=== PATIENT | male | born 1945 | race Caucasian/White ===

== ENCOUNTER 2022-10-18 13:44 | Inpatient (IN) | payer OTHER ==
[~2022-10-18] VITALS: Ht 172.7 cm; Wt 75.7 kg
[2022-10-18 14:03] VITALS: BP_SYST 114
[2022-10-18] MEDS ORDERED: NACL 0.9% 1,000 ML IV ONE (14:15)
[2022-10-18] MEDS ORDERED: ACETAMINOPHEN 650 MG SUPP.RECT RC ONE (14:15)
[2022-10-18 15:35] LABS: BASOPHILS % (AUTO) 0.3 % (0.0-2.0); HEMATOCRIT 39.2 % (36-54); HEMOGLOBIN 13.1 g/dL (14.0-18.0); LYMPHOCYTES # (AUTO) 0.3 K/uL (1.0-5.5); LYMPHOCYTES % (AUTO) 2.6 % (20.5-51.5); MEAN CORPUSCULAR HEMOGLOBIN 29 pg (27-31); MEAN CORPUSCULAR HGB CONC 33 % (32-36); MEAN CORPUSCULAR VOLUME 87 fL (79.0-98.0); MONOCYTES # (AUTO) 0.7 K/uL (0.0-1.0); MONOCYTES % (AUTO) 6.1 % (1.7-9.3); NEUTROPHILS # (AUTO) 9.7 K/uL (1.8-7.7); PLATELET COUNT (AUTO) 345 K/uL (130-430); RED BLOOD CELL COUNT(AUTO) 4.49 MIL/uL (4.2-6.2); RED CELL DISTRIBUTION WIDTH 14.3 % (9.0-15.0); WHITE BLOOD COUNT (AUTO) 10.6 K/uL (4.8-10.8)
[2022-10-18] MEDS ORDERED: CALCIUM CHLORIDE 1 GM/10 ML DISP.SYRIN (14 mEq Ca++/SYR) ONE ×2 (15:42→16:20)
[2022-10-18 15:43] LABS: INR 1.2 (0.80-1.20); PROTHROMBIN TIME 11.9 SECS (9.5-12.5)
[2022-10-18] MEDS ORDERED: CALCIUM CHLORIDE 1 GM/10ML VIAL (13.6 mEq Ca++/VIAL) IV ONE (15:45)
[2022-10-18] MEDS ORDERED: MAGNESIUM SULFATE 50 ML IV ONE (15:45)
[2022-10-18 15:49] LABS: CALCIUM 9.2 mg/dL (8.4-11.0); CHLORIDE 91 mmol/L (98-107); GLUCOSE 132 mg/dL (70-99)
[2022-10-18 15:53] LABS: ALANINE AMINOTRANSFERASE 59 U/L (12-78); ALBUMIN 2.7 g/dL (3.4-4.8); ANION GAP 24 (5-15); ASPARTATE AMINOTRANSFERASE 29 U/L (10-37); TOTAL BILIRUBIN 0.6 mg/dL (0.0-1.0)
[2022-10-18] MEDS ORDERED: INSULIN REGULAR, HUMAN 10 UNITS/0.1 ML, 3 ML VIAL IVP ONE (16:15)
[2022-10-18] MEDS ORDERED: SODIUM BICARBONATE 8.4% JECT 50 MEQ/50 ML SYRINGE IVP ONE ×2 (16:15→20:00)
[2022-10-18] MEDS ORDERED: DEXTROSE 50% JECT 50 ML DISP.SYRIN IVP ONE (16:15)
[2022-10-18 16:29] LABS: UREA NITROGEN, BLOOD 192 mg/dL (8-21)
[2022-10-18 16:30] LABS: CREATININE 13.17 mg/dL (0.55-1.30)
[2022-10-18] MEDS ORDERED: PROPOFOL DRIP 100 ML IV ONE (16:44)
[2022-10-18] MEDS ORDERED: SODIUM POLYSTYRENE SULFONATE 15 GM/60 ML UDBTL PO ONE ×3 (16:45→21:15)
[2022-10-18] MEDS ORDERED: SODIUM ZIRCONIUM CYCLOSILICATE 10 GM POWD.PACK PO ONE (16:45)
[2022-10-18 17:47] LABS: BILIRUBIN,URINE NEGATIVE (NEGATIVE); BLOOD, URINE 3+ (NEGATIVE); COLOR,URINE YELLOW (YELLOW); GLUCOSE,URINE NEGATIVE (NEGATIVE); KETONES,URINE NEGATIVE (NEGATIVE); LEUKOCYTE ESTERASE ,URINE NEGATIVE (NEGATIVE); NITRITE, URINE NEGATIVE (NEGATIVE); PH,URINE 5.5 (5.0-8.0); PROTEIN URINE 1+ (NEGATIVE); UROBILINOGEN,URINE 0.2 (0.2-1.0)
[2022-10-18 17:56] LABS: CLARITY/URINE SLIGHTLY CLOUDY (CLEAR)
[2022-10-18 17:57] LABS: BACTERIA,URINE FEW /HPF (None Seen); MUCUS,URINE None Seen /LPF (None Seen); RBC,URINE >100 /HPF (0-3); WBC,URINE 0-3 /HPF (0-3); YEAST,URINE Few /HPF (None Seen)
[2022-10-18] MEDS ORDERED: PRAV10TA37 PO (18:48)
[2022-10-18] MEDS ORDERED: CYAN100010 PO (18:48)
[2022-10-18] MEDS ORDERED: ARIP5TAB10 PO (18:48)
[2022-10-18] MEDS ORDERED: LEVE500T9 PO (18:48)
[2022-10-18] MEDS ORDERED: POLY17PO4 PO (18:48)
[2022-10-18] MEDS ORDERED: ACET325T53 PO (18:48)
[2022-10-18] MEDS ORDERED: BISA-79 PO (18:48)
[2022-10-18] MEDS ORDERED: ASCO500T20 PO (18:48)
[2022-10-18] MEDS ORDERED: PSYL3.4P5 PO (18:48)
[2022-10-18] MEDS ORDERED: PRO20 PO (18:48)
[2022-10-18] MEDS ORDERED: MULT-1193 PO (18:48)
[2022-10-18] MEDS ORDERED: SENN-22 PO (18:48)
[2022-10-18] MEDS ORDERED: MOM PO (18:48)
[2022-10-18] MEDS ORDERED: ONDA-8 TL (18:48)
[2022-10-18] MEDS ORDERED: EZET10TA30 PO (18:48)
[2022-10-18 18:54] LABS: CHLORIDE 98 mmol/L (98-107); GLUCOSE 151 mg/dL (70-99)
[2022-10-18 19:03] LABS: ANION GAP 20 (5-15); CHOLESTEROL 105 mg/dL (<200); FREE T4 (FREE THYROXINE) 1.1 ng/dL (0.6-1.6); HDL CHOLESTEROL 40 mg/dL (>45); THYROID STIMULATING HORMONE 1.53 uIu/mL (0.34-4.82); TRIGLYCERIDES 85 mg/dL (30-150)
[2022-10-18] MEDS: PROPOFOL DRIP 100 ML IV PRN (19:03)
[2022-10-18] MEDS: D5/0.45 NS 1,000 ML IV SCH (19:04)
[2022-10-18 19:08] LABS: CREATININE 12.38 mg/dL (0.55-1.30); UREA NITROGEN, BLOOD 188 mg/dL (8-21)
[2022-10-18] MEDS ORDERED: ALBUTEROL SULFATE 0.083% 2.5 MG/3 ML VIAL.NEB INH ONE ×2 (21:10→21:15)
[2022-10-18 21:55] VITALS: BP_SYST 104
[2022-10-18 22:00] VITALS: BP_SYST 97
[2022-10-18] MEDS ORDERED: ALBUMIN HUMAN 25% 100 ML IV ONE (22:30)
[2022-10-18] MEDS ORDERED: NOREPINEPHRINE BITARTRATE 4 MG in NS 246 ML IV PRN (22:30)
[2022-10-18 23:00] VITALS: BP_SYST 107
[2022-10-18] MEDS: DOXYCYCLINE HYCLATE 100 MG CAPSULE PO SCH (23:00)
[2022-10-18] MEDS: PIPERACILLIN/TAZO 2.25G/DEX-IS 50 ML IV SCH (23:00)
[2022-10-18 23:13] VITALS: BP_SYST 107
[2022-10-18] MEDS ORDERED: PIPERACILLIN/TAZOBACTAM 2.25 GM VIAL IV ONE (23:21)
[2022-10-18] MEDS ORDERED: DOXYCYCLINE HYCLATE 100 MG VIAL IV ONE (23:22)
[2022-10-18 23:43] VITALS: BP_SYST 107
[2022-10-19] VITALS (31 sets, daily range): BP systolic 87–111
[2022-10-19] MEDS ORDERED: ALBUMIN HUMAN 25% 100 ML IV SCH (02:30)
[2022-10-19] MEDS: PROPOFOL DRIP 100 ML IV PRN ×2 (02:57→14:43)
[2022-10-19] MEDS ORDERED: ALBUMIN HUMAN 25% 100 ML IV PRN (03:15)
[2022-10-19] MEDS: PIPERACILLIN/TAZO 2.25G/DEX-IS 50 ML IV SCH ×3 (05:07→21:28)
[2022-10-19 06:57] LABS: BASOPHILS % (AUTO) 0.2 % (0.0-2.0); EOSINOPHILS % (AUTO) 0.4 % (0.0-4.0); HEMOGLOBIN 9.6 g/dL (14.0-18.0); LYMPHOCYTES # (AUTO) 0.3 K/uL (1.0-5.5); LYMPHOCYTES % (AUTO) 4.4 % (20.5-51.5); MEAN CORPUSCULAR HEMOGLOBIN 29 pg (27-31); MEAN CORPUSCULAR HGB CONC 34 % (32-36); MEAN CORPUSCULAR VOLUME 86 fL (79.0-98.0); MONOCYTES # (AUTO) 0.9 K/uL (0.0-1.0); MONOCYTES % (AUTO) 11.3 % (1.7-9.3); NEUTROPHILS # (AUTO) 6.5 K/uL (1.8-7.7); NEUTROPHILS % (AUTO) 83.7 % (40.0-70.0); PLATELET COUNT (AUTO) 216 K/uL (130-430); RED BLOOD CELL COUNT(AUTO) 3.26 MIL/uL (4.2-6.2); RED CELL DISTRIBUTION WIDTH 14.1 % (9.0-15.0); WHITE BLOOD COUNT (AUTO) 7.8 K/uL (4.8-10.8)
[2022-10-19 07:19] LABS: ALANINE AMINOTRANSFERASE 52 U/L (12-78); ALBUMIN 2.2 g/dL (3.4-4.8); ANION GAP 20 (5-15); ASPARTATE AMINOTRANSFERASE 35 U/L (10-37); CALCIUM 8.9 mg/dL (8.4-11.0); CHLORIDE 107 mmol/L (98-107); GLUCOSE 166 mg/dL (70-99); PHOSPHORUS 10.9 mg/dL (2.7-4.5); TOTAL BILIRUBIN 0.5 mg/dL (0.0-1.0)
[2022-10-19 07:38] LABS: CREATININE 9.88 mg/dL (0.55-1.30); UREA NITROGEN, BLOOD 159 mg/dL (8-21)
[2022-10-19] MEDS: DOXYCYCLINE HYCLATE 100 MG CAPSULE PO SCH ×2 (09:21→21:27)
[2022-10-19] MEDS: D5/0.45 NS 1,000 ML IV SCH ×2 (09:21→21:28)
[2022-10-19] MEDS ORDERED: HEPARIN SODIUM,PORCINE 5,000 UNITS/ML VIAL IV ONE (21:00)
[2022-10-19] MEDS ORDERED: HEPARIN SODIUM,PORCINE 5,000 UNITS/ML VIAL ONE (21:04)
[2022-10-20] VITALS (30 sets, daily range): BP systolic 85–135
[2022-10-20 07:05] LABS: BASOPHILS % (AUTO) 0.5 % (0.0-2.0); EOSINOPHILS # (AUTO) 0.3 K/uL (0.0-0.4); EOSINOPHILS % (AUTO) 3.8 % (0.0-4.0); HEMATOCRIT 24.5 % (36-54); HEMOGLOBIN 8.4 g/dL (14.0-18.0); LYMPHOCYTES # (AUTO) 0.5 K/uL (1.0-5.5); LYMPHOCYTES % (AUTO) 6.9 % (20.5-51.5); MEAN CORPUSCULAR HEMOGLOBIN 30 pg (27-31); MEAN CORPUSCULAR HGB CONC 34 % (32-36); MEAN CORPUSCULAR VOLUME 87 fL (79.0-98.0); MONOCYTES # (AUTO) 0.7 K/uL (0.0-1.0); MONOCYTES % (AUTO) 8.9 % (1.7-9.3); NEUTROPHILS % (AUTO) 79.9 % (40.0-70.0); PLATELET COUNT (AUTO) 176 K/uL (130-430); RED BLOOD CELL COUNT(AUTO) 2.83 MIL/uL (4.2-6.2); WHITE BLOOD COUNT (AUTO) 7.5 K/uL (4.8-10.8)
[2022-10-20 07:22] LABS: ANION GAP 12 (5-15); CHLORIDE 106 mmol/L (98-107); CREATININE 4.54 mg/dL (0.55-1.30); GLUCOSE 131 mg/dL (70-99); UREA NITROGEN, BLOOD 83 mg/dL (8-21)
[2022-10-20 08:06] LABS: CREATININE, URINE 65.4 mg/dL (Not Estab.); MICROALBUMIN URINE RANDOM 143.7 ug/mL (Not Estab.)
[2022-10-20] MEDS: PIPERACILLIN/TAZO 2.25G/DEX-IS 50 ML IV SCH ×3 (08:12→21:44)
[2022-10-20] MEDS: SEVELAMER CARBONATE 800 MG TABLET PO SCH ×3 (08:12→17:11)
[2022-10-20] MEDS: DOXYCYCLINE HYCLATE 100 MG CAPSULE PO SCH ×2 (08:13→21:44)
[2022-10-20] MEDS ORDERED: PROPOFOL DRIP 100 ML IV PRN (09:45)
[2022-10-20] MEDS: D5/0.45 NS 1,000 ML IV SCH ×2 (12:19→23:50)
[2022-10-20] MEDS ORDERED: HEPARIN SODIUM,PORCINE 5,000 UNITS/ML VIAL MC ONE (13:30)
[2022-10-20] MEDS: HEPARIN SODIUM,PORCINE 5,000 UNITS/ML VIAL SUBCUT SCH (21:39)
[2022-10-21] VITALS (25 sets, daily range): BP systolic 99–123
[2022-10-21] MEDS: PIPERACILLIN/TAZO 2.25G/DEX-IS 50 ML IV SCH ×3 (05:44→21:17)
[2022-10-21 06:05] LABS: BASOPHILS % (AUTO) 0.3 % (0.0-2.0); EOSINOPHILS # (AUTO) 0.6 K/uL (0.0-0.4); EOSINOPHILS % (AUTO) 5.9 % (0.0-4.0); HEMATOCRIT 26.4 % (36-54); HEMOGLOBIN 9.1 g/dL (14.0-18.0); LYMPHOCYTES # (AUTO) 0.6 K/uL (1.0-5.5); LYMPHOCYTES % (AUTO) 5.9 % (20.5-51.5); MEAN CORPUSCULAR HEMOGLOBIN 30 pg (27-31); MEAN CORPUSCULAR HGB CONC 35 % (32-36); MEAN CORPUSCULAR VOLUME 87 fL (79.0-98.0); MONOCYTES # (AUTO) 1.1 K/uL (0.0-1.0); MONOCYTES % (AUTO) 10.3 % (1.7-9.3); NEUTROPHILS # (AUTO) 8.1 K/uL (1.8-7.7); NEUTROPHILS % (AUTO) 77.6 % (40.0-70.0); PLATELET COUNT (AUTO) 172 K/uL (130-430); RED BLOOD CELL COUNT(AUTO) 3.02 MIL/uL (4.2-6.2); RED CELL DISTRIBUTION WIDTH 13.8 % (9.0-15.0); WHITE BLOOD COUNT (AUTO) 10.4 K/uL (4.8-10.8)
[2022-10-21 06:18] LABS: ANION GAP 8 (5-15); CALCIUM 7.9 mg/dL (8.4-11.0); CHLORIDE 101 mmol/L (98-107); CREATININE 2.53 mg/dL (0.55-1.30); GLUCOSE 104 mg/dL (70-99); UREA NITROGEN, BLOOD 41 mg/dL (8-21)
[2022-10-21] MEDS: SEVELAMER CARBONATE 800 MG TABLET PO SCH ×3 (08:20→18:22)
[2022-10-21] MEDS: DOXYCYCLINE HYCLATE 100 MG CAPSULE PO SCH ×2 (08:21→21:15)
[2022-10-21] MEDS: PANTOPRAZOLE SODIUM 40 MG/VIAL (PROTONIX) IVP SCH (08:21)
[2022-10-21] MEDS: HEPARIN SODIUM,PORCINE 5,000 UNITS/ML VIAL SUBCUT SCH ×2 (08:22→21:16)
[2022-10-21] MEDS ORDERED: KCL 20 mEq in 100 mL (PREMIX) 100 ML IV ONE (09:15)
[2022-10-21] MEDS: D5/0.45 NS 1,000 ML IV SCH (13:26)
[2022-10-22] VITALS (19 sets, daily range): BP systolic 96–124
[2022-10-22] MEDS: D5/0.45 NS 1,000 ML IV SCH (02:40)
[2022-10-22] MEDS: PIPERACILLIN/TAZO 2.25G/DEX-IS 50 ML IV SCH ×3 (06:08→21:11)
[2022-10-22 06:44] LABS: BASOPHILS % (AUTO) 0.4 % (0.0-2.0); EOSINOPHILS # (AUTO) 0.5 K/uL (0.0-0.4); EOSINOPHILS % (AUTO) 5.9 % (0.0-4.0); HEMATOCRIT 23.2 % (36-54); LYMPHOCYTES # (AUTO) 0.5 K/uL (1.0-5.5); LYMPHOCYTES % (AUTO) 6.1 % (20.5-51.5); MEAN CORPUSCULAR HEMOGLOBIN 30 pg (27-31); MEAN CORPUSCULAR HGB CONC 35 % (32-36); MEAN CORPUSCULAR VOLUME 88 fL (79.0-98.0); MONOCYTES # (AUTO) 0.8 K/uL (0.0-1.0); MONOCYTES % (AUTO) 9.1 % (1.7-9.3); NEUTROPHILS # (AUTO) 6.7 K/uL (1.8-7.7); NEUTROPHILS % (AUTO) 78.5 % (40.0-70.0); PLATELET COUNT (AUTO) 183 K/uL (130-430); RED BLOOD CELL COUNT(AUTO) 2.66 MIL/uL (4.2-6.2); RED CELL DISTRIBUTION WIDTH 13.3 % (9.0-15.0); WHITE BLOOD COUNT (AUTO) 8.5 K/uL (4.8-10.8)
[2022-10-22 06:49] LABS: ANION GAP 6 (5-15); CALCIUM 7.6 mg/dL (8.4-11.0); CHLORIDE 101 mmol/L (98-107); CREATININE 2.21 mg/dL (0.55-1.30); GLUCOSE 103 mg/dL (70-99)
[2022-10-22 07:43] LABS: UREA NITROGEN, BLOOD 40 mg/dL (8-21)
[2022-10-22] MEDS: PANTOPRAZOLE SODIUM 40 MG/VIAL (PROTONIX) IVP SCH (08:46)
[2022-10-22] MEDS: DOXYCYCLINE HYCLATE 100 MG CAPSULE PO SCH ×2 (08:46→20:37)
[2022-10-22] MEDS: SEVELAMER CARBONATE 800 MG TABLET PO SCH ×3 (08:47→17:24)
[2022-10-22] MEDS: HEPARIN SODIUM,PORCINE 5,000 UNITS/ML VIAL SUBCUT SCH ×2 (08:48→20:41)
[2022-10-22] MEDS: KCL 20 mEq in D5/0.45NS 1000mL 1,000 ML IV SCH (11:19)
[2022-10-22] MEDS: EPOETIN ALFA 10,000 UNITS/ML VIAL SUBCUT SCH (17:24)
[2022-10-23 00:41] VITALS: BP_SYST 123
[2022-10-23 07:32] LABS: BASOPHILS % (AUTO) 0.4 % (0.0-2.0); EOSINOPHILS # (AUTO) 0.6 K/uL (0.0-0.4); EOSINOPHILS % (AUTO) 6.5 % (0.0-4.0); HEMATOCRIT 28.5 % (36-54); HEMOGLOBIN 9.6 g/dL (14.0-18.0); LYMPHOCYTES # (AUTO) 0.7 K/uL (1.0-5.5); LYMPHOCYTES % (AUTO) 7.8 % (20.5-51.5); MEAN CORPUSCULAR HEMOGLOBIN 30 pg (27-31); MEAN CORPUSCULAR HGB CONC 34 % (32-36); MEAN CORPUSCULAR VOLUME 88 fL (79.0-98.0); MONOCYTES # (AUTO) 1.2 K/uL (0.0-1.0); MONOCYTES % (AUTO) 12.4 % (1.7-9.3); NEUTROPHILS % (AUTO) 72.9 % (40.0-70.0); PLATELET COUNT (AUTO) 215 K/uL (130-430); RED BLOOD CELL COUNT(AUTO) 3.24 MIL/uL (4.2-6.2); RED CELL DISTRIBUTION WIDTH 13.7 % (9.0-15.0); WHITE BLOOD COUNT (AUTO) 9.6 K/uL (4.8-10.8)
[2022-10-23 07:36] LABS: ANION GAP 10 (5-15); CALCIUM 7.9 mg/dL (8.4-11.0); CHLORIDE 99 mmol/L (98-107); CREATININE 2.02 mg/dL (0.55-1.30); GLUCOSE 83 mg/dL (70-99); UREA NITROGEN, BLOOD 40 mg/dL (8-21)
[2022-10-23 07:43] VITALS: BP_SYST 105
[2022-10-23] MEDS: SEVELAMER CARBONATE 800 MG TABLET PO SCH ×3 (08:51→17:43)
[2022-10-23] MEDS: DOXYCYCLINE HYCLATE 100 MG CAPSULE PO SCH ×2 (08:52→21:05)
[2022-10-23] MEDS: PANTOPRAZOLE SODIUM 40 MG/VIAL (PROTONIX) IVP SCH (08:52)
[2022-10-23] MEDS: HEPARIN SODIUM,PORCINE 5,000 UNITS/ML VIAL SUBCUT SCH ×2 (08:55→21:09)
[2022-10-23] MEDS ORDERED: POTASSIUM CHLORIDE 40 MEQ in NS 250 ML IV ONE (09:45)
[2022-10-23] MEDS ORDERED: POTASSIUM CHLORIDE 20 MEQ/PKT PACKET PO ONE (09:45)
[2022-10-23 11:59] VITALS: BP_SYST 104
[2022-10-23] MEDS: PIPERACILLIN/TAZO 2.25G/DEX-IS 50 ML IV SCH ×2 (14:00→21:10)
[2022-10-23 16:40] VITALS: BP_SYST 127
[2022-10-23] MEDS: KCL 20 mEq in D5/0.45NS 1000mL 1,000 ML IV SCH (18:10)
[2022-10-24] VITALS (8 sets, daily range): BP systolic 108–155
[2022-10-24] MEDS: PIPERACILLIN/TAZO 2.25G/DEX-IS 50 ML IV SCH ×2 (06:26→13:56)
[2022-10-24] MEDS: PANTOPRAZOLE SODIUM 40 MG/VIAL (PROTONIX) IVP SCH (08:22)
[2022-10-24] MEDS: SEVELAMER CARBONATE 800 MG TABLET PO SCH ×3 (08:23→18:13)
[2022-10-24] MEDS: DOXYCYCLINE HYCLATE 100 MG CAPSULE PO SCH (08:24)
[2022-10-24] MEDS: HEPARIN SODIUM,PORCINE 5,000 UNITS/ML VIAL SUBCUT SCH (08:31)
[2022-10-24] MEDS: KCL 20 mEq in D5/0.45NS 1000mL 1,000 ML IV SCH (10:00)
[2022-10-24] MEDS ORDERED: CIPR500T5 PO (12:20)
[2022-10-24 15:08] LABS: ANION GAP 9 (5-15); CALCIUM 8.2 mg/dL (8.4-11.0); CHLORIDE 100 mmol/L (98-107); CREATININE 1.54 mg/dL (0.55-1.30); GLUCOSE 118 mg/dL (70-99); UREA NITROGEN, BLOOD 33 mg/dL (8-21)
[2022-10-24 15:12] LABS: PHOSPHORUS 1.4 mg/dL (2.7-4.5)
[2022-10-24 15:56] LABS: BASOPHILS % (AUTO) 0.4 % (0.0-2.0); EOSINOPHILS # (AUTO) 0.4 K/uL (0.0-0.4); EOSINOPHILS % (AUTO) 4.6 % (0.0-4.0); HEMATOCRIT 28.1 % (36-54); HEMOGLOBIN 9.5 g/dL (14.0-18.0); LYMPHOCYTES # (AUTO) 0.5 K/uL (1.0-5.5); LYMPHOCYTES % (AUTO) 5.9 % (20.5-51.5); MEAN CORPUSCULAR HEMOGLOBIN 30 pg (27-31); MEAN CORPUSCULAR HGB CONC 34 % (32-36); MEAN CORPUSCULAR VOLUME 87 fL (79.0-98.0); MONOCYTES # (AUTO) 1.1 K/uL (0.0-1.0); MONOCYTES % (AUTO) 13.1 % (1.7-9.3); NEUTROPHILS # (AUTO) 6.5 K/uL (1.8-7.7); PLATELET COUNT (AUTO) 256 K/uL (130-430); RED BLOOD CELL COUNT(AUTO) 3.24 MIL/uL (4.2-6.2); RED CELL DISTRIBUTION WIDTH 13.5 % (9.0-15.0); WHITE BLOOD COUNT (AUTO) 8.5 K/uL (4.8-10.8)
[2022-10-24] MEDS: EPOETIN ALFA 10,000 UNITS/ML VIAL SUBCUT SCH (17:00)
== END 2022-10-24 20:10 | DRG 208 ==
LOC: SED 13:44 → SIC 18:23 → STU 10-22 16:46
PROVIDERS: ADMIT Internal Medicine; ATTEND Internal Medicine
PROC: 5A1945Z Respiratory Ventilation, 24-96 Consecutive Hours (ICD-10-PCS; principal; 2022-10-18)
PROC: 0BH17EZ Insertion of Endotracheal Airway into Trachea, Via Natural or Artificial Opening (ICD-10-PCS; 2022-10-18)
PROC: 02HV33Z Insertion of Infusion Device into Superior Vena Cava, Percutaneous Approach (ICD-10-PCS; 2022-10-18)
PROC: 5A1D70Z Performance of Urinary Filtration, Intermittent, Less than 6 Hours Per Day (ICD-10-PCS; 2022-10-18)
PROC: 02HV33Z Insertion of Infusion Device into Superior Vena Cava, Percutaneous Approach (ICD-10-PCS; 2022-10-19)
PROC: B548ZZA Ultrasonography of Superior Vena Cava, Guidance (ICD-10-PCS; 2022-10-19)
PROC: 5A1D70Z Performance of Urinary Filtration, Intermittent, Less than 6 Hours Per Day (ICD-10-PCS; 2022-10-19)
PROC: 5A1D70Z Performance of Urinary Filtration, Intermittent, Less than 6 Hours Per Day (ICD-10-PCS; 2022-10-20)
PROC: 4A00X4Z Measurement of Central Nervous Electrical Activity, External Approach (ICD-10-PCS; 2022-10-21)
DX: J96.01 Acute respiratory failure with hypoxia (principal); J18.9 Pneumonia, unspecified organism; E43 Unspecified severe protein-calorie malnutrition; G92.8 Other toxic encephalopathy; N18.6 End stage renal disease; N17.9 Acute kidney failure, unspecified; I69.351 Hemiplegia and hemiparesis following cerebral infarction affecting right dominant side; E87.20 Acidosis, unspecified; E87.5 Hyperkalemia; E87.6 Hypokalemia; F03.90 Unspecified dementia, unspecified severity, without behavioral disturbance, psychotic disturbance, mood disturbance, and anxiety; I25.10 Atherosclerotic heart disease of native coronary artery without angina pectoris; G40.909 Epilepsy, unspecified, not intractable, without status epilepticus; D63.1 Anemia in chronic kidney disease; Z20.822 Contact with and (suspected) exposure to COVID-19; E83.39 Other disorders of phosphorus metabolism; R31.0 Gross hematuria; E11.22 Type 2 diabetes mellitus with diabetic chronic kidney disease; K21.9 Gastro-esophageal reflux disease without esophagitis; Z79.1 Long term (current) use of non-steroidal anti-inflammatories (NSAID); Z79.899 Other long term (current) drug therapy; Z99.2 Dependence on renal dialysis; I69.391 Dysphagia following cerebral infarction; Z68.25 Body mass index [BMI] 25.0-25.9, adult
CPT/HCPCS: 36415; 36600; 71045; 74018; 76770; 80048; 80053; 80061; 81000; 82043; 82570; 82803-TC; 83605; 83735; 83880; 84100; 84132; 84302; 84439; 84443; 84484; 85025; 85610-TC; 85730-TC; 87040; 87070-TC; 87081; 87086; 87205-TC; 92610-GN; 93005; 94002; 94003; 94640; 94760; 95816; 96365; 96375; 97163-GP; 97530-GP; 99291; 99292; C9113; G0378; J0885; J1644; J1815; J2543; J2704; J3475; J3480; J3490; J7050; J7613